=== PATIENT | male | born 1985 | race Caucasian/White ===

== ENCOUNTER 2019-02-25 12:17 | Observation (INO) ==
[2019-02-25] MEDS ORDERED: 0.9 % Sodium Chloride 1,000 ML IVC ONE (12:57)
[2019-02-25] MEDS ORDERED: *HR* HYDROmorphone (PF) 1 MG/ML SYRINGE IVP ONE (12:57)
[2019-02-25] MEDS ORDERED: Ondansetron 4 MG/2 ML VIAL IVP ONE ×2 (12:57→16:49)
[2019-02-25] MEDS ORDERED: Isovue-370 500 ML BOTTLE IVP ONE (12:58)
--- NOTE | 2019-02-25 13:04 | Emergency Department Note ---
Disposition Clinical Impression: Cyclic vomiting syndrome Qualifiers: Vomiting Intractability: intractable Nausea presence: with nausea Qualified Code(s): G43.A1 - Cyclical vomiting, intractable Disposition: Admitted As Inpatient Condition: Fair Referrals: Rodo Hodges CNP [Primary Care Provider] - Forms: ED Satisfaction Letter, Work/School Release Time of Disposition: 17:08 Abdominal Pain HPI - General Chief Complaint: ED Abdominal Pain Stated Complaint: N,V,D x 5 Time Seen by Provider: 02/25/19 12:41 Source: patient, family, EMS Mode of arrival: EMS Limitations: no limitations Nursing Notes Reviewed: Yes Vital Signs Reviewed: Yes - History of Present Illness Pt Subjective Complaint: abdominal pain Onset (ago): day(s) (5 days) Consistency: constant (Seem to get a little bit better yesterday and then recurred full intensity today) Location: epigastric Pain Severity: severe Pain Scale: 10 Quality: stabbing, sharp Radiation: back Migration to: no migration Improves with: nothing Worsens with: eating Context: new medications (Was placed on steroids for bug bites a couple days before the onset of his abdominal pain) Associated symptoms: Reports: nausea, vomiting. Denies: diarrhea Treatments prior to arrival: none - Related Data Home Medications Medication Instructions Recorded Confirmed Lisinopril [Zestril] 10 mg PO DAILY 11/08/17 02/25/19 Pantoprazole Sodium [Protonix] 40 mg PO DAILY 11/08/17 02/25/19 Sertraline [Zoloft] 50 mg PO DAILY 11/08/17 02/25/19 Previous Rx's Medication Instructions Recorded Ondansetron HCl [Zofran] 4 mg PO Q8HR PRN #21 tab 12/29/18 Allergies Allergy/AdvReac Type Severity Reaction Status Date / Time promethazine [From Phenergan] AdvReac Anxiety Verified 11/08/17 15:25 All systems ED: reviewed and negative except as stated. Constitutional: Denies: fever, chills ENT ED: Denies: ear pain, throat pain, congestion Cardiovascular: Denies: chest pain, palpitations Respiratory: Denies: cough, dyspnea Gastrointestinal: Reports: abdominal pain, nausea, vomiting. Denies: diarrhea, constipation Genitourinary: Denies: urgency, dysuria, frequency Musculoskeletal: Reports: back pain Integumentary: Denies: rash Neurological: Denies: headache Abdominal Pain PMH - Past Medical History Medical history: Reports: asthma, hypertension, other Male Surgical History: Reports: appendectomy, orthopedic, other, sinus surgery, Tonsillectomy Psychiatric history: Reports: anxiety, depression - Social History Smoking status: Never smoker Alcohol use: Reports: heavy Drug use: Reports: opiates, marijuana, prescription drug abuse Physical Exam - General Limitations: no limitations General appearance: alert, in distress (Seems to be in pain) - Head Head exam: atraumatic, normocephalic, normal inspection - Eye Eye exam: Present: normal appearance, PERRL, EOMI. Absent: scleral icterus, conjunctival injection - ENT ENT exam: normal exam, normal oropharynx, mucous membranes moist, TM's normal bilaterally, normal external ear exam - Neck Neck exam: Present: normal inspection, full ROM, trachea midline. Absent: tenderness, meningismus, lymphadenopathy - Chest Chest inspection: Present: normal inspection, symmetric chest wall rise. Absent: tenderness - Respiratory Respiratory exam: Present: normal lung sounds bilaterally. Absent: respiratory distress, wheezes - Cardiovascular Cardiovascular exam: Present: regular rate, normal rhythm, normal heart sounds - Abdominal Exam Abdominal exam: Present: soft, tenderness, normal bowel sounds. Absent: distention Abdominal tenderness: Present: epigastrium, severe - Extremities Exam Extremities exam: Present: normal inspection. Absent: pedal edema - Back Exam Back exam: Present: normal inspection, full ROM. Absent: tenderness - Neurological Exam Neurological exam: Present: alert, oriented X3 - Psychiatric Psychiatric exam: Present: normal affect, normal mood - Skin Skin exam: Present: warm, dry. Absent: rash Course Course Narrative: Epigastric abdominal pain for 5 days. He has had episodes of this over and over again over the past couple years. He has had multiple evaluations including gallbladder workup and endoscopy and all the workups have been negative. Etiology is unclear at this point. Reportedly the endoscopy showed no abnormalities. Patient's onset of symptoms started a couple days after starting steroids would certainly can upset the stomach. We tender to the epigastrium a nd left upper quadrant. I am going to do a full abdominal pain workup including a dual contrast CT of the abdomen and pelvis. Disposition will be based on diagnostic results and reevaluation. - Reevaluation(s) Reevaluation #1: Patient still having dry heaves in the hospital. The lab workup was fine. The CAT scan of the abdomen with IV and oral contrast was negative. However the patient still symptomatic and he is in need to be admitted to the hospital, she will build keep medicines down at home. I have already discussed the case with the hospitalist, Dr. Vela. This seems like cyclical vomiting and certainly could be related to his marijuana use. He is adamant about not having any issues with withdrawal. He did take the steroids a couple days ago which could be a precipitant. Time: 17:08 - Consultations Consultation #1: Dr. Vela, hospitalist - I discussed the case with the hospitalist. He accepted the patient for admission. Time: 17:07 Vital Signs Temperature 98.2 F 02/25/19 12:21 Pulse Rate 57 02/25/19 12:21 Respiratory Rate 18 02/25/19 12:21 Blood Pressure 146/92 02/25/19 12:21 O2 Sat by Pulse Oximetry 100 02/25/19 12:21 Temperature 98.2 F 02/25/19 12:21 Pulse Rate 60 02/25/19 17:05 Respiratory Rate 16 02/25/19 17:05 Blood Pressure 149/98 02/25/19 17:05 O2 Sat by Pulse Oximetry 100 02/25/19 17:05 Oxygen Delivery Oxygen Delivery Room Air Abdominal Pain - Medical Records Medical records reviewed: Yes I reviewed the patient's medical records. - Lab Data Lab results reviewed: Yes I reviewed the patient's lab results. Result diagrams: 02/25/19 13:12 02/25/19 13:12 Lab Results 02/25/19 02/25/19 02/25/19 Range/Units 13:08 13:12 13:12 WBC 15.4 H (4.3-11.1) K/mcL RBC 4.28 (4.19-5.50) M/mcL Hgb 14.7 (12.9-16.9) g/dL Hct 42.4 (37.5-50.1) % MCV 99.1 (83.0-100.0) fL MCH 34.3 H (28.0-33.3) pg MCHC 34.7 (31.6-35.5) g/dL RDW 12.8 (11.5-14.5) % Plt Count 310 (140-400) K/mcL MPV 8.8 L (9.4-12.4) fL Immature Gran % 0.5 (0-4) % Seg Neutrophils % 80.9 % Lymphocytes % 10.8 % Monocytes % 6.7 % Eosinophils % 0.8 % Basophils % 0.3 % Neutrophils # 12.5 H (1.6-8.9) K/mcL Lymphocytes # 1.7 (0.6-4.6) K/mcL Monocytes # 1.0 (0.0-1.3) K/mcL Eosinophils # 0.1 (0.0-0.6) K/mcL Basophils # 0.1 (0.0-0.2) K/mcL PT 11.5 (9.4-12.1) Seconds INR 1.0 APTT 28.8 (26.0-36.0) Seconds Sodium (136-145) mEq/L Potassium (3.5-5.1) mEq/L Chloride (98-107) mEq/L Carbon Dioxide (23-29) mEq/L BUN (6-20) mg/dL Creatinine (0.70-1.30) mg/dL Est GFR ( Amer) (> 60) Est GFR (Non-Af Amer) (> 60) BUN/Creatinine Ratio (6-26) Glucose (70-105) mg/dL Calculated Osmolality (280-300) Lactic Acid (0.5-2.2) mmol/L Calcium (8.6-10.3) mg/dL Total Bilirubin (0.3-1.0) mg/dL Direct Bilirubin (0.0-0.2) mg/dL Indirect Bilirubin (0.0-1.2) mg/dL AST (13-39) Units/L ALT (7-52) Units/L Alkaline Phosphatase (34-104) Units/L Serum Total Protein (6.4-8.9) g/dL Albumin (3.5-5.7) g/dL Globulin (2.4-3.5) g/dL Albumin/Globulin Ratio (1.1-2.2) Lipase (11-82) Units/L Urine Color Yellow (Yellow) Urine Clarity Clear (Clear) Urine pH 7.0 (5.0-8.0) pH Units Ur Specific [place] 1.020 (1.010-1.025) Urine Protein Negative (Neg-Trace) mg/dL Urine Glucose (UA) Normal (Normal) mg/dL Urine Ketones Negative (Negative) mg/dL Urine Blood Trace-intact H (Negative) Urine Nitrite Negative (Negative) Urine Bilirubin Negative (Negative) Urine Urobilinogen Normal (Normal) mg/dL Ur Leukocyte Esterase Negative (Negative) Urine Microscopic RBC 0-3 (0-3) per hpf Urine Microscopic WBC 0-3 (0-3) per hpf Ur Squamous Epith Cells Few (None-Few) per lpf Urine Bacteria Few (None-Few) per hpf Urine Mucus Few (Few) Ur Culture Indicated? YES A (NO) Urine Opiates Screen (Xiatup=809) ng/mL Ur Buprenorphine Scrn (Cutoff=5) ng/mL Ur Oxycodone Screen (Cutoff= 100) ng/mL Ur Barbiturates Screen (Frxkey=209) ng/mL Ur Phencyclidine Scrn (Cutoff=25) ng/mL Ur Amphetamines Screen (Xqjjio=2795) ng/mL U Benzodiazepines Scrn (Nbrghj=693) ng/mL Urine Cocaine Screen (Cutoff= 300) ng/mL U Marijuana (THC) Screen (Cutoff = 50) ng/mL Ur Drug Screen Interp Ethyl Alcohol (Less than 10) mg/dL 02/25/19 02/25/19 02/25/19 Range/Units 13:12 13:12 13:15 WBC (4.3-11.1) K/mcL RBC (4.19-5.50) M/mcL Hgb (12.9-16.9) g/dL Hct (37.5-50.1) % MCV (83.0-100.0) fL MCH (28.0-33.3) pg MCHC (31.6-35.5) g/dL RDW (11.5-14.5) % Plt Count (140-400) K/mcL MPV (9.4-12.4) fL Immature Gran % (0-4) % Seg Neutrophils % % Lymphocytes % % Monocytes % % Eosinophils % % Basophils % % Neutrophils # (1.6-8.9) K/mcL Lymphocytes # (0.6-4.6) K/mcL Monocytes # (0.0-1.3) K/mcL Eosinophils # (0.0-0.6) K/mcL Basophils # (0.0-0.2) K/mcL PT (9.4-12.1) Seconds INR APTT (26.0-36.0) Seconds Sodium 134 L (136-145) mEq/L Potassium 3.8 (3.5-5.1) mEq/L Chloride 102 (98-107) mEq/L Carbon Dioxide 26 (23-29) mEq/L BUN 8 (6-20) mg/dL Creatinine 0.64 L (0.70-1.30) mg/dL Est GFR ( Amer) > 60 (> 60) Est GFR (Non-Af Amer) > 60 (> 60) BUN/Creatinine Ratio 13 (6-26) Glucose 102 (70-105) mg/dL Calculated Osmolality 277 L (280-300) Lactic Acid 1.3 (0.5-2.2) mmol/L Calcium 8.6 (8.6-10.3) mg/dL Total Bilirubin 0.6 (0.3-1.0) mg/dL Direct Bilirubin 0.1 (0.0-0.2) mg/dL Indirect Bilirubin 0.5 (0.0-1.2) mg/dL AST 14 (13-39) Units/L ALT 9 (7-52) Units/L Alkaline Phosphatase 46 (34-104) Units/L Serum Total Protein 6.4 (6.4-8.9) g/dL Albumin 3.9 (3.5-5.7) g/dL Globulin 2.5 (2.4-3.5) g/dL Albumin/Globulin Ratio 1.6 (1.1-2.2) Lipase 9 L (11-82) Units/L Urine Color (Yellow) Urine Clarity (Clear) Urine pH (5.0-8.0) pH Units Ur Specific [place] (1.010-1.025) Urine Protein (Neg-Trace) mg/dL Urine Glucose (UA) (Normal) mg/dL Urine Ketones (Negative) mg/dL Urine Blood (Negative) Urine Nitrite (Negative) Urine Bilirubin (Negative) Urine Urobilinogen (Normal) mg/dL Ur Leukocyte Esterase (Negative) Urine Microscopic RBC (0-3) per hpf Urine Microscopic WBC (0-3) per hpf Ur Squamous Epith Cells (None-Few) per lpf Urine Bacteria (None-Few) per hpf Urine Mucus (Few) Ur Culture Indicated? (NO) Urine Opiates Screen Negative (Cspmvd=953) ng/mL Ur Buprenorphine Scrn Negative (Cutoff=5) ng/mL Ur Oxycodone Screen Positive H (Cutoff= 100) ng/mL Ur Barbiturates Screen Negative (Djizxk=845) ng/mL Ur Phencyclidine Scrn Negative (Cutoff=25) ng/mL Ur Amphetamines Screen Negative (Mxifcq=0463) ng/mL U Benzodiazepines Scrn Negative (Dpemua=548) ng/mL Urine Cocaine Screen Negative (Cutoff= 300) ng/mL U Marijuana (THC) Screen Positive H (Cutoff = 50) ng/mL Ur Drug Screen Interp See Below Ethyl Alcohol < 10 (Less than 10) mg/dL - Radiology Data Radiology results reviewed: Yes I reviewed the patient's radiology results.
[2019-02-25 13:21] LABS: Bilirubin,Urine Negative (Negative); Blood,Urine Trace-intact (Negative); Clarity,Urine Clear (Clear); Color,Urine Yellow (Yellow); Glucose,Urine (UA) Normal (Normal); Ketones,Urine Negative (Negative); Leukocyte Esterase,Urine Negative (Negative); Nitrite,Urine Negative (Negative); Protein,Urine Negative (Neg-Trace); Urobilinogen,Urine Normal (Normal)
[2019-02-25 13:25] LABS: Basophils % 0.3 %; Eosinophils # 0.1 K/mcL (0.0-0.6); Eosinophils % 0.8 %; Hematocrit 42.4 % (37.5-50.1); Hemoglobin 14.7 g/dL (12.9-16.9); Immature Granulocytes % 0.5 % (0-4); Lymphocytes # 1.7 K/mcL (0.6-4.6); Lymphocytes % 10.8 %; Mean Corpuscular HGB Conc 34.7 g/dL (31.6-35.5); Mean Corpuscular Hemoglobin 34.3 pg (28.0-33.3); Mean Corpuscular Volume 99.1 fL (83.0-100.0); Mean Platelet Volume 8.8 fL (9.4-12.4); Monocytes % 6.7 %; Platelet Count 310 K/mcL (140-400); Red Blood Count 4.28 M/mcL (4.19-5.50); Red Cell Distribution Width 12.8 % (11.5-14.5); Segmented Neutrophils % 80.9 %; White Blood Count 15.4 K/mcL (4.3-11.1)
[2019-02-25 13:29] LABS: Amphetamine Screen,Urine Negative ng/mL (Cutoff=1000); Barbiturate Screen,Urine Negative ng/mL (Cutoff=200); Benzodiazepines Screen,Urine Negative ng/mL (Cutoff=200); Cannabinoid Screen,Urine Positive ng/mL (Cutoff = 50); Cocaine Screen,Urine Negative ng/mL (Cutoff= 300); Opiate Screen,Urine Negative ng/mL (Cutoff=300); Phencyclidine Screen,Urine Negative ng/mL (Cutoff=25)
[2019-02-25 13:29] LABS: Basophils # 0.1 K/mcL (0.0-0.2); Neutrophils # 12.5 K/mcL (1.6-8.9)
[2019-02-25 13:31] LABS: Prothrombin Time 11.5 Seconds (9.4-12.1)
[2019-02-25 13:31] LABS: Bacteria,Urine Few per hpf (None-Few); Mucus,Urine Few (Few); RBC,Urine 0-3 per hpf (0-3); Squamous Epithelial Cell,Urine Few per lpf (None-Few); WBC,Urine 0-3 per hpf (0-3)
[2019-02-25 13:34] LABS: Activated Partial Thrombo Time 28.8 Seconds (26.0-36.0)
[2019-02-25 13:39] LABS: Alanine Aminotransferase 9 Units/L (7-52); Albumin 3.9 g/dL (3.5-5.7); Albumin/Globulin Ratio 1.6 (1.1-2.2); Alkaline Phosphatase 46 Units/L (34-104); Aspartate Amino Transferase 14 Units/L (13-39); BUN/Creatinine Ratio 13 (6-26); Bilirubin,Direct 0.1 mg/dL (0.0-0.2); Bilirubin,Indirect 0.5 mg/dL (0.0-1.2); Bilirubin,Total 0.6 mg/dL (0.3-1.0); Blood Urea Nitrogen 8 mg/dL (6-20); Calcium 8.6 mg/dL (8.6-10.3); Carbon Dioxide 26 mEq/L (23-29); Chloride 102 mEq/L (98-107); Ethanol < 10 mg/dL (Less than 10); Globulin 2.5 g/dL (2.4-3.5); Glucose 102 mg/dL (70-105); Lipase 9 Units/L (11-82); Osmolality,Calculated 277 (280-300); Potassium 3.8 mEq/L (3.5-5.1); Sodium 134 mEq/L (136-145); Total Protein 6.4 g/dL (6.4-8.9); eGFR For African Americans > 60 (> 60); eGFR For Non-African Americans > 60 (> 60)
[2019-02-25] MEDS ORDERED: Isovue-370 500 ML BOTTLE PO ONE (15:20)
[2019-02-25] MEDS ORDERED: *HR* FentaNYL (PF) 100 MCG/2 ML VIAL IVP ONE (17:28)
[2019-02-25] MEDS ORDERED: Haloperidol Lactate 5 MG/ML VIAL IVP ONE ×2 (17:28)
[2019-02-25] MEDS ORDERED: Morphine Sulfate Oral CONC 10 MG/0.5 ML ORAL.SYG SL PRN ×2 (17:49→18:01)
[2019-02-25] MEDS ORDERED: Naloxone 0.4 MG/ML INJ IVP PRN (18:01)
[2019-02-25] MEDS: 0.9 % Sodium Chloride 1,000 ML IVC SCH (18:13)
[2019-02-25] MEDS: Ondansetron 4 MG/2 ML VIAL IVP SCH (19:49)
[2019-02-25] MEDS: Morphine Sulfate Oral CONC 10 MG/0.5 ML ORAL.SYG SL PRN (22:53)
[2019-02-26] MEDS: Ondansetron 4 MG/2 ML VIAL IVP SCH ×4 (00:18→12:37)
[2019-02-26] MEDS: Morphine Sulfate Oral CONC 10 MG/0.5 ML ORAL.SYG SL PRN ×6 (02:33→15:05)
[2019-02-26] MEDS: 0.9 % Sodium Chloride 1,000 ML IVC SCH (03:53)
[2019-02-26] MEDS ORDERED: Simethicone 80 MG TAB.CHEW PO PRN (06:16)
[2019-02-26] MEDS ORDERED: Pantoprazole 40 MG VIAL IVP SCH (09:00)
[2019-02-26 14:47] VITALS: BP 112/75
--- NOTE | 2019-02-26 15:32 | Internal Med History&Physical ---
Date of Encounter: 02/26/19 Time of Encounter: 14:45 Assessment and Plan (1) Nausea and vomiting Current visit: No Status: Acute Etiology not determined. I told him it could be related to marijuana use but that the leukocytosis with neutrophilia could indicate viral gastroenteritis. He states his symptoms have essentially resolved and he feels stable for discharge home now. Qualifiers: Vomiting type: bilious vomiting Qualified Code(s): R11.14 - Bilious vomiting (2) Chest pain Current visit: No Status: Acute Encouraged him to discontinue smoking and discuss with his PCP about having further workup. Qualifiers: Chest pain type: unspecified Qualified Code(s): R07.9 - Chest pain, unspecified (3) HTN (hypertension) Current visit: No Status: Chronic Continue lisinopril. Qualifiers: Hypertension type: essential hypertension Qualified Code(s): I10 - Essential (primary) hypertension Internal Medicine - H&P: HPI Chief complaint: Vomiting Admitted From: Emergency Dept Plans for Post Hospital Care: Home History of present illness: Mr. Arroyo is a 34 year old male who came to emergency room stating he had awakened with nausea and began having dry heaves earlier in the day. He had mild abdominal discomfort. He denies fevers or chills. He came to emergency room and was evaluated and was found to have leukocytosis with neutrophilia. He was admitted to [facility] floor for ongoing care needs. He states he has had several similar episodes over the past year. He reports they occur every 2-4 months and last approximately 2-4 days. Reports EGD was done 12 months ago at [facility] which showed gastritis. He reports he has been on Protonix for at least one year. He has not had colonoscopy. Reports multiple CT scans of the abdomen/pelvis have not shown significant pathology. He denies documented disorders of his liver gallbladder or exocrine pancreas. He denies melena or hematochezia. He admits to using marijuana 4-5 joints per day but this frequency has not changed in 15-20 years. He consumes beer on average 6 cans per day. He denies other illicit drug use. Past Med Surg Social Fam HX - Past Medical History Medical history: asthma, hypertension, other Psychiatric history: anxiety, depression - Past Surgical History Surgical History: appendectomy, other (Patient has had a previous neck fracture with cadaver bone placed in C6.) Additional surgical history: Neck surgery C6, [place], left knee sx right ankle sx - Social History Smoking Status: Never smoker Smokeless Tobacco Status: No Alcohol use: heavy Drug use: opiates, marijuana, prescription drug abuse - Family History Mother Family Member Ethnicity: Non- Living Status: Still Living Hx Family Cardiac Disorders: Yes (CVA) Hx Family Respiratory Disorders: No Hx Family Cancer: No Hx Family GI Disorders: No Hx Family Endocrine Disorder: No Hx Family Neuromuscular Disorders: No Hx Family Neurologic Disorders: Yes (CVA) Father Family Member Ethnicity: Non- Living Status: Still Living Hx Family Cardiac Disorders: Yes (HTN) Brother Family Member Ethnicity: Non- Living Status: Still Living Sister Family Member Ethnicity: Non- Living Status: Still Living Internal Medicine - H&P: Meds Lisinopril [Zestril] 10 mg PO DAILY 11/08/17 [History] Pantoprazole Sodium [Protonix] 40 mg PO DAILY 11/08/17 [History] Sertraline [Zoloft] 50 mg PO DAILY 11/08/17 [History] Ondansetron HCl [Zofran] 4 mg PO Q8HR PRN #21 tab 12/29/18 [Rx] Allergy/AdvReac Type Severity Reaction Status Date / Time promethazine [From Phenergan] AdvReac Anxiety Verified 11/08/17 15:25 All Systems PM: A 10-system review of systems was performed and is negative for pertinent findings except as documented above in the HPI. Review of systems: Gen.: He states his weight has been stable for several months Cardiovascular: He has history of hypertension and bradycardia. Reports "irregular heartbeat" but does not know details. He has orthostatic symptoms on raising up from a bent over position. He denies TX heart failure DVT or pulmonary embolus. He reports he gets chest pain and dyspnea on exertion occasionally but has had no workup done. Respiratory: He smoked since age 13 up to 2 packs per day. He has not had PFTs and does not use home oxygen. GI: As per history of present illness : He denies hematuria dysuria or kidney stones Neurologic: He reports he has had "seizures" associated with the episodes of vomiting per history of present illness. He has not seen a neurologist and does not take AED. Endocrine: He denies diabetes thyroid disease or hyperlipidemia Hematology/oncology: He denies blood disorders cancers or anemia Psychiatric: He has anxiety and depression. He denies other mental health issues. [place] skeletal: He had C-spine fracture 2011, left knee injury with surgery and right ankle surgery in the past. He denies gout or other bone joint or muscle disorders. - Constitutional Vitals: Temp Pulse Resp BP Pulse Ox 98.6 F 74 16 112/75 98 02/26/19 14:46 02/26/19 14:46 02/26/19 14:46 02/26/19 14:46 02/26/19 14:46 Exam: Gen.: He is a well-developed well-nourished male resting comfortably in bed who appears in no acute distress HEENT: Head is atraumatic and normocephalic. Eyes: EOMI. There is no scleral icterus. Mouth: Mucosa is moist. Neck: Supple and nontender. There is no thyromegaly or adenopathy noted. Heart: Regular without murmurs gallops or ectopics Lungs: No wheezes or crackles are heard. Abdomen: Soft with bowel sounds present. There is minimal tenderness to palpation. No masses or guarding are noted. Extremities: There is no cyanosis edema or clubbing noted. Dorsalis pedis posterior tibial pulses are 2 over 2 bilaterally. Neurologic: Mental status: He is talkative and a good historian. Cranial nerves: Smile is symmetric. Forehead wrinkles bilaterally. Tongue protrudes midline. EOMI. Motor: There is no pronator drift. Cerebellar: Finger to nose is intact bilaterally. Skin: Warm and dry. He has a large number of 1-2 mm diameter erythematous lesions on his legs and feet which he reports occurred from being out in the [place] several days ago. Internal Med - H&P Results - Labs CBC & Chem 7: 02/25/19 13:12 02/25/19 13:12 - Impressions ITS Impressions Abdomen/Pelvis CT 02/25/19 12:58 IMPRESSION: 1. Small amount of pelvic ascites of unclear etiology, otherwise, no acute intra-abdominal abnormality. 2. Status post appendectomy. D/ / 02/25/2019 15:44:29 Vilma Neil MD / lexy Interpreting Provider: Vilma Neil MD
--- NOTE | 2019-02-26 15:45 | Discharge Summary ---
Orders not resulted at time of discharge: Pending orders 02/25/19 13:08 Culture,Urine [RM] Stat Date of Encounter: 02/26/19 Time of Encounter: 14:45 - Discharge Diagnosis (1) Nausea and vomiting Priority: Primary Status: Acute Qualifiers: Vomiting type: bilious vomiting Qualified Code(s): R11.14 - Bilious vomiting (2) Chest pain Priority: Secondary Status: Resolved Qualifiers: Chest pain type: unspecified Qualified Code(s): R07.9 - Chest pain, unspecified (3) HTN (hypertension) Priority: Secondary Status: Chronic Qualifiers: Hypertension type: essential hypertension Qualified Code(s): I10 - Essential (primary) hypertension Hospital course: Mr. Arroyo is a 34 year old male who came to emergency room stating he had awakened with nausea and began having dry heaves earlier in the day. He had mild abdominal discomfort. He denies fevers or chills. He came to emergency room and was evaluated and was found to have leukocytosis with neutrophilia. He was admitted to [facility] for ongoing care needs. Initial orders written by the emergency room physician. I saw him on February 26 form the history physical and discharge. By the time I saw him he stated his vomiting has subsided. He had tolerated breakfast and lunch without vomiting. He felt stable for discharge home. I encouraged him to discuss with his PCP further workup for his abdominal symptoms if they persist. I encouraged him to discontinue tobacco and THC use. I told him to discuss with his PCP further workup for chest pain. He will follow with his PCP Rodo Hodges CNP within 1 week. - Time Spent with Patient Total time spent providing and/or coordinating discharge services: - Discharge Medications Prescriptions: Continued Sertraline [Zoloft] 50 mg PO DAILY Lisinopril [Zestril] 10 mg PO DAILY Pantoprazole Sodium [Protonix] 40 mg PO DAILY Ondansetron HCl [Zofran] 4 mg PO Q8HR PRN #21 tab PRN Reason: Nausea And Vomiting Home Medications: Lisinopril [Zestril] 10 mg PO DAILY 11/08/17 [History] Pantoprazole Sodium [Protonix] 40 mg PO DAILY 11/08/17 [History] Sertraline [Zoloft] 50 mg PO DAILY 11/08/17 [History] Ondansetron HCl [Zofran] 4 mg PO Q8HR PRN #21 tab 12/29/18 [Rx] Allergies/Adverse Reactions: Allergy/AdvReac Type Severity Reaction Status Date / Time promethazine [From Phenergan] AdvReac Anxiety Verified 11/08/17 15:25 Date of admission: 02/25/19 17:16 Primary care physician: Rodo Hodges CNP - Constitutional Vitals: Temp Pulse Resp BP Pulse Ox 98.6 F 74 16 112/75 98 02/26/19 14:46 02/26/19 14:46 02/26/19 14:46 02/26/19 14:46 02/26/19 14:46 - Patient Status Disposition: Home, Self-Care Condition: Fair - Discharge Instructions Follow Up With: Rodo Hodges CNP [Primary Care Provider] - 03/04/19 11:00 am - Diet and Activity Activity: resume usual activities as tolerated Diet: advance to your usual diet
== END 2019-02-26 16:00 | disposition home or self-care (01) ==
LOC: INPPIK 12:17 → EMEROOPIK 12:17 → INPPIK 17:45
PROVIDERS: ADMIT Internal Medicine; ATTEND Internal Medicine